=== PATIENT | female | born 1985 | race Caucasian/White ===

== ENCOUNTER 2017-03-15 17:55 | Emergency (ER) | payer MEDICAID ==
[~2017-03-15] VITALS: Ht 172.7 cm; Wt 72.9 kg
[2017-03-15] MEDS ORDERED: SODIUM CHLORIDE FLUSH 10ML SYR IVF ONE ×2 (18:30→19:00)
[2017-03-15] MEDS ORDERED: SODIUM CHLORIDE 0.9% 1,000ML IVBOLUS ONE ×2 (18:30→19:00)
[2017-03-15 18:41] LABS: ASPARTATE AMINO TRANSFERASE 18 U/L (15-37); BLOOD UREA NITROGEN 8 mg/dL (7-18)
[2017-03-15] MEDS ORDERED: ONDANSETRON 2MG/ML, 2ML ONE (18:54)
[2017-03-15] MEDS ORDERED: MORPHINE SULFATE 4 MG/ML, 1ML ONE ×2 (18:54→20:31)
[2017-03-15] MEDS ORDERED: ONDANSETRON 2MG/ML, 2ML IVPush ONE (19:00)
[2017-03-15] MEDS: MORPHINE SULFATE 4 MG/ML, 1ML IVPush PRN ×2 (19:01→20:36)
[2017-03-15 22:04] VITALS: BP 101/64
== END 2017-03-15 22:12 | disposition home or self-care (01) ==
LOC: ED 21:50
DX: R19.7 Diarrhea, unspecified (principal); R11.0 Nausea; R10.84 Generalized abdominal pain; K76.89 Other specified diseases of liver
CPT/HCPCS: 36415; 76700; 80053; 81001; 83690; 84703; 85025; 96361; 96374; 96375; 96376; 99285; J2405; J7030

== ENCOUNTER 2017-07-09 06:28 | Day surgery (SDC) | payer OTHER, MEDICAID ==
[~2017-07-09] VITALS: Ht 172.7 cm; Wt 68.0 kg
[~2017-07-09 06:28] MED LIST: METR500T PO
[2017-07-09 06:53] VITALS: BP 115/84
[2017-07-09] MEDS ORDERED: LACTATED RINGERS 1,000 ML IV SCH (06:59)
[2017-07-09] MEDS ORDERED: PREDNISOLONE (07:15)
[2017-07-09 07:24] LABS: HCG UR LOT HCG7030192
[2017-07-09 07:31] LABS: HCG UR OBC PASS
[2017-07-09] MEDS ORDERED: PROPOFOL 10 MG/ML, 50ML ONE (08:09)
[2017-07-09] MEDS ORDERED: MIDAZOLAM 1 MG/ML, 2ML ONE ×2 (08:09)
== END 2017-07-09 10:40 ==
LOC: OUT 06:28
PROVIDERS: ATTEND Internal Medicine Gastroenterology
DX: K29.50 Unspecified chronic gastritis without bleeding (principal); K62.1 Rectal polyp; K21.0 Gastro-esophageal reflux disease with esophagitis; K52.9 Noninfective gastroenteritis and colitis, unspecified; Z91.040 Latex allergy status; Z88.0 Allergy status to penicillin; Z88.8 Allergy status to other drugs, medicaments and biological substances; Z91.09 Other allergy status, other than to drugs and biological substances; Z72.89 Other problems related to lifestyle
CPT/HCPCS: 43239; 45380; 81025; 88305; J2250; J2704; J7120

== ENCOUNTER → 2017-07-25 | Outpatient (CLI) | payer OTHER, MEDICAID ==
[~2017-07-25] MED LIST changes: +GADOBUTROL 10 MMOL/10 ML VIAL ONE; +GLUCAGON 1 MG ONE; +PREDNISOLONE
== END | disposition home or self-care (01) ==
LOC: CFH 07:09
PROVIDERS: ATTEND Internal Medicine Gastroenterology
DX: K50.00 Crohn's disease of small intestine without complications (principal); R10.33 Periumbilical pain
CPT/HCPCS: 72197; 74183; A9585; J1610

== ENCOUNTER 2019-02-20 14:24 | Emergency (ER) | payer OTHER ==
[~2019-02-20] VITALS: Ht 172.7 cm; Wt 70.3 kg
[~2019-02-20 14:24] MED LIST changes: -GADOBUTROL 10 MMOL/10 ML VIAL ONE; -GLUCAGON 1 MG ONE
[2019-02-20] MEDS ORDERED: ONDANSETRON 2MG/ML, 2ML ONE (15:29)
[2019-02-20] MEDS ORDERED: MORPHINE SULFATE 4 MG/ML, 1ML ONE (15:29)
[2019-02-20] MEDS ORDERED: SODIUM CHLORIDE 0.9% 1,000ML IVBOLUS ONE (15:30)
[2019-02-20] MEDS ORDERED: SODIUM CHLORIDE FLUSH 10ML SYR IVF ONE (15:30)
[2019-02-20] MEDS ORDERED: MORPHINE SULFATE 4 MG/ML, 1ML IVPush PRN (15:30)
[2019-02-20] MEDS ORDERED: ONDANSETRON 2MG/ML, 2ML IVPush ONE (15:30)
[2019-02-20 15:44] LABS: MEAN CORPUSCULAR HEMOGLOBIN 34.2 pg (27.0-34.8); MEAN CORPUSCULAR HGB CONC 33.4 g/dL (32.4-35.8); MEAN CORPUSCULAR VOLUME 102.2 fL (80-100); MEAN PLATELET VOLUME 8.9 fL (7.4-10.4); PLATELET COUNT 199 x10^3/uL (130-400); RED BLOOD COUNT 4.51 x10^6/uL (3.82-5.3); RED CELL DISTRIBUTION WIDTH 13.2 % (9.6-15.2)
[2019-02-20 15:54] LABS: ALBUMIN 3.9 g/dL (3.4-5.0); ANION GAP 9 mmol/L (5-15); CHLORIDE 104 mmol/L (98-107)
[2019-02-20 16:00] LABS: ALANINE AMINOTRANSFERASE 14 U/L (12-78); ALKALINE PHOSPHATASE 46 U/L (45-117); BILIRUBIN,TOTAL 0.7 mg/dL (0.2-1.0); CREATININE 1.12 mg/dL (0.55-1.02); TOTAL PROTEIN 8.1 g/dL (6.4-8.2)
[2019-02-20 16:06] LABS: MD YES
[2019-02-20 16:08] LABS: BANDS%(MANUAL) 12 % (0-7); LYMPH#(MANUAL) 0.82 x10^3/uL (1-3.4); LYMPHS% (MANUAL) 7 % (22-44); MONOS#(MANUAL) 0.35 x10^3/uL (0.3-2.7); MONOS% (MANUAL) 3 % (2-9); SEG#(MANUAL) 9.13 x10^3/uL (1.8-6.8); SEGS% (MANUAL) 78 % (42-75)
[2019-02-20 16:11] LABS: <PLATELET ESTIMATE> ADEQUATE; <PLT MORPHOLOGY> NORMAL PLT MORPH
--- NOTE | 2019-02-20 16:12 | NUR ---
PT RESTING COMFORTABLY IN BED AT THIS TIME. NO WANTS OR NEEDS EXPRESSED.
[2019-02-20 16:51] VITALS: BP 120/71
[2019-02-20] MEDS ORDERED: OXYcodone/APAP 5/325MG TABLET ONE (17:18)
[2019-02-20] MEDS ORDERED: OXYcodone/APAP 5/325MG TABLET PO ONE (17:30)
== END 2019-02-20 17:29 | disposition home or self-care (01) ==
LOC: ED 16:21
DX: K50.10 Crohn's disease of large intestine without complications (principal); R19.7 Diarrhea, unspecified
CPT/HCPCS: 36415; 80053; 83690; 84703; 85025; 96361; 96374; 96375; 99283; J2270; J2405; J7030

== ENCOUNTER 2019-02-21 14:04 | Emergency (ER) | payer OTHER ==
[~2019-02-21] VITALS: Ht 172.7 cm; Wt 70.0 kg
--- NOTE | 2019-02-21 14:26 | NUR ---
PT TO ROOM FROM LOBBY
--- NOTE | 2019-02-21 14:29 | NUR ---
33 Y/O FEMALE PRESENTS TO ED WITH C/O ABD PAIN. PER PT "I HAVE CROHNS AND I WAS HERE YESTERDAY. I WAS UNABLE TO GIVE A STOOL SAMPLE YESTERDAY. BUT I HAVE DIARRHEA NOW. I CAN'T KEEP ANYTHING DOWN. I 'VE BEEN TAKING SOME NORCO TO HELP. I HAVE SEVERE ABDOMINAL CRAMPS AND BODY ACHES. I'M PROBABLY DEHYDRATED." PT TEARFUL. EDMD BEDSIDE. NO C/O N/V/, TRAUMA, SYNCOPE, CP, SOB.
--- NOTE | 2019-02-21 14:41 | NUR ---
PT AMBULATORY WITH STEADY GAIT TO BATHROOM. PT GIVEN ITEMS FOR SAMPLES.
--- NOTE | 2019-02-21 14:57 | NUR ---
SAMPLES TO LAB
[2019-02-21] MEDS ORDERED: MORPHINE SULFATE 4 MG/ML, 1ML IVPush PRN (15:00)
[2019-02-21] MEDS ORDERED: ONDANSETRON 2MG/ML, 2ML IVPush ONE (15:00)
[2019-02-21] MEDS ORDERED: SODIUM CHLORIDE 0.9% 1,000ML IVBOLUS ONE (15:00)
[2019-02-21] MEDS ORDERED: SODIUM CHLORIDE FLUSH 10ML SYR IVF ONE (15:00)
--- NOTE | 2019-02-21 15:09 | NUR ---
PT REFUSING BLOOD DRAW AND PIV AT THIS TIME. PT EDUCATED REGARDING THE NEED FOR BLOOD CULTURES AND LABS THAT WERE ORDERED. ALSO THE IMPORTANCE OF BLOOD CULTURES X2 NEEDING TWO LAB STICKS. PT STATES "I AM JUST GOING TO CALL MY DR. 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
[2019-02-21 15:19] LABS: MICROSCOPIC INDICATED
[2019-02-21 15:30] LABS: CULTURE INDICATED? YES
[2019-02-21 15:37] LABS: CLOSTRIDIUM DIFFICILE ANTIGEN NEGATIVE; CLOSTRIDIUM DIFFICILE TOXIN NEGATIVE (Negative)
--- NOTE | 2019-02-21 15:47 | NUR ---
PIV ESTABLISHED. PT TOLERATED WITH NO COMPLICATIONS. BLOOD OBTAINED. BEDSIDE. PT STILL TEARFUL D/T ANXIETY
[2019-02-21] MEDS ORDERED: ONDANSETRON 2MG/ML, 2ML ONE (16:01)
[2019-02-21] MEDS ORDERED: MORPHINE SULFATE 4 MG/ML, 1ML ONE (16:01)
[2019-02-21 16:09] LABS: ALANINE AMINOTRANSFERASE 13 U/L (12-78); ALBUMIN 3.4 g/dL (3.4-5.0); ANION GAP 10 mmol/L (5-15); CHLORIDE 104 mmol/L (98-107)
[2019-02-21 16:12] LABS: ALKALINE PHOSPHATASE 43 U/L (45-117); BILIRUBIN,TOTAL 0.8 mg/dL (0.2-1.0); CREATININE 0.97 mg/dL (0.55-1.02)
[2019-02-21 16:25] LABS: MEAN CORPUSCULAR HEMOGLOBIN 35.2 pg (27.0-34.8); MEAN CORPUSCULAR HGB CONC 34.4 g/dL (32.4-35.8); MEAN CORPUSCULAR VOLUME 102.3 fL (80-100); MEAN PLATELET VOLUME 8.7 fL (7.4-10.4); PLATELET COUNT 182 x10^3/uL (130-400); RED BLOOD COUNT 4.32 x10^6/uL (3.82-5.3); RED CELL DISTRIBUTION WIDTH 13.1 % (9.6-15.2)
[2019-02-21 16:26] LABS: BASOPHILS # (AUTO) 0.01 x10^3/uL (0-0.1); BASOPHILS % (AUTO) 0 % (0-1); EOSINOPHILS # (AUTO) 0.02 x10^3/uL (0-0.4); EOSINOPHILS % (AUTO) 0 % (1-7); LYMPHOCYTES # (AUTO) 0.44 x10^3/uL (1-3.4); LYMPHOCYTES % (AUTO) 6 % (22-44); MD SCAN; MONOCYTES # (AUTO) 0.47 x10^3/uL (0.2-0.8); MONOCYTES % (AUTO) 6 % (2-9); NEUTROPHILS # (AUTO) 6.47 x10^3/uL (1.8-6.8); NEUTROPHILS % (AUTO) 87 % (42-75)
--- NOTE | 2019-02-21 16:26 | NUR ---
PT STRAIGHT CATH'D. PT TOLERATED WITH NO COMPLICATIONS. UA SENT TO LAB. BEDSIDE. NO NEEDS REQUESTED AT THIS TIME.
[2019-02-21 16:50] LABS: MICROSCOPIC INDICATED
[2019-02-21 16:56] LABS: CULTURE INDICATED? NO
[2019-02-21] MEDS ORDERED: OMNIPAQUE 350 MG/ML, 100ML BOTTLE ONE (17:06)
[2019-02-21] MEDS ORDERED: POTASSIUM CHLORIDE 20 MEQ TAB.ER.PRT PO ONE (17:30)
[2019-02-21] MEDS ORDERED: POTASSIUM CHLORIDE 20 MEQ TAB.ER.PRT ONE (17:32)
[2019-02-21 17:38] VITALS: BP 118/74
--- NOTE | 2019-02-21 17:39 | NUR ---
LATE ENTRY FOR 1715 PT AMBULATORY WITH STEADY GAIT TO BATHROOM.
--- NOTE | 2019-02-21 17:43 | NUR ---
THIS RN IN TO D/C PT. PT HAS ALREADY LEFT ROOM. NO PT BELONGINGS IN ROOM.
--- NOTE | 2019-02-21 17:51 | NUR ---
PT LEFT WITHOUT D/C PAPERWORK
== END 2019-02-21 17:52 | disposition home or self-care (01) ==
LOC: ED 14:58
DX: R10.84 Generalized abdominal pain (principal); R10.31 Right lower quadrant pain; R10.12 Left upper quadrant pain; R10.32 Left lower quadrant pain; R50.9 Fever, unspecified; F41.9 Anxiety disorder, unspecified; K50.90 Crohn's disease, unspecified, without complications
CPT/HCPCS: 36415; 74177; 80053; 81001; 83605; 83690; 85025; 87040; 87086; 87324; 89055; 96374; 96375; 99284; J2270; J2405; J7030; Q9967

== ENCOUNTER → 2020-11-09 | Outpatient (CLI) | payer OTHER ==
[~2020-11-09] MED LIST changes: +GADOTERATE 10 MMOL/20ML SYR ONE; +GLUCAGON 1 MG ONE
== END | disposition home or self-care (01) ==
LOC: CFH 11:35
PROVIDERS: ATTEND Internal Medicine Gastroenterology
DX: K50.00 Crohn's disease of small intestine without complications (principal); R10.12 Left upper quadrant pain
CPT/HCPCS: 72197; 74183; A9575; J1610